=== PATIENT | male | born 1995 | race Caucasian/White ===

== ENCOUNTER 2021-02-11 15:26 | Inpatient (IN) | payer OTHER ==
[2021-02-11 17:42] VITALS: BMI 19.5
[2021-02-11] MEDS ORDERED: MENTHOL/PHENOL 1 EACH UD MM PRN (18:27)
[2021-02-11] MEDS ORDERED: diazePAM 5 MG TABLET PO PRN (18:27)
[2021-02-11] MEDS ORDERED: cloNIDine HCL 0.1 MG TABLET PO PRN (18:27)
[2021-02-11] MEDS ORDERED: MAG HYDROX/AL HYDROX/SIMETH 30 ML UNIT-DOSE CUP PO PRN (18:27)
[2021-02-11] MEDS ORDERED: METHOCARBAMOL 500 MG TABLET PO PRN (18:27)
[2021-02-11] MEDS ORDERED: NICOTINE POLACRILEX 2 MG GUM BUC PRN (18:27)
[2021-02-11] MEDS ORDERED: BISMUTH SUBSALICYLATE 524 MG/30 ML UD PO PRN (18:27)
[2021-02-11] MEDS ORDERED: MAGNESIUM HYDROX 2400MG/30ML ORAL SUSPENSION 30 ML CUP PO PRN (18:27)
[2021-02-11] MEDS ORDERED: MAGNESIUM CITRATE 300 ML BOTTLE PO PRN (18:27)
[2021-02-11] MEDS ORDERED: ONDANSETRON *ODT* 4 MG TABLET SL PRN (18:27)
[2021-02-11] MEDS ORDERED: ACETAMINOPHEN 325 MG TABLET (FP) PO PRN ×2 (18:27)
[2021-02-11] MEDS ORDERED: IBUPROFEN 400 MG TABLET (FP) PO PRN (18:27)
[2021-02-11] MEDS ORDERED: hydrOXYzine PAMOATE 25 MG CAPSULE (FP) PO PRN (18:27)
[2021-02-11] MEDS ORDERED: METHADONE HCL 10 MG TABLET (FOR DETOX USE ONLY) PO ONE (20:30)
[2021-02-11] MEDS ORDERED: MELATONIN 5 MG TABLETS PO SCH (22:00)
[2021-02-11] MEDS: diazePAM 5 MG TABLET PO SCH (22:25)
[2021-02-11] MEDS: THIAMINE HCL 100 MG TABLET (FP) PO SCH (22:26)
[2021-02-12] MEDS: diazePAM 5 MG TABLET PO SCH ×4 (05:56→22:40)
[2021-02-12] MEDS ORDERED: METHADONE HCL 10 MG TABLET (FOR DETOX USE ONLY) ONE (08:55)
[2021-02-12] MEDS ORDERED: METHADONE HCL 5 MG TABLET (FOR DETOX USE ONLY) ONE (08:55)
[2021-02-12] MEDS ORDERED: METHADONE (DETOX) 20 MG, METHADONE (DETOX) 5 MG PO ONE (10:00)
[2021-02-12] MEDS: NICOTINE 14 MG/24 HOURS TOPICAL PATCH TD SCH (10:34)
[2021-02-12] MEDS: PRENATAL VITAMINS W/ FOLIC ACID TABLET (FP) PO SCH (10:34)
[2021-02-12 13:50] LABS: HEMATOCRIT 36.6 % (35.4-49); HEMOGLOBIN 12.4 GM/dL (11.7-16.9); MCH 32.6 pg (25.7-33.7); MCHC 33.8 g/dl (32.0-35.9); MEAN CELL VOLUME 96.4 fl (80-96); MEAN PLT VOLUME 8.8 fl (7.5-11.1); PLATELET COUNT 343 K/MM3 (134-434); RDW 13.8 % (11.9-15.9); WHITE BLOOD COUNT 5.6 K/mm3 (4.0-10.0)
[2021-02-12 13:55] LABS: ALBUMIN 3.6 g/dl (3.4-5.0); BLOOD UREA NITROGEN 22.1 mg/dL (7-18)
[2021-02-12 13:57] LABS: BILIRUBIN,TOTAL 0.2 mg/dL (0.2-1); CALCIUM 9.5 mg/dL (8.5-10.1)
[2021-02-12 13:58] LABS: CREATININE 0.8 mg/dL (0.55-1.3)
[2021-02-12] MEDS: THIAMINE HCL 100 MG TABLET (FP) PO SCH (22:39)
[2021-02-12] MEDS: MELATONIN 5 MG TABLETS PO PRN (22:42)
[2021-02-13] MEDS: diazePAM 5 MG TABLET PO SCH ×3 (05:25→22:00)
[2021-02-13] MEDS ORDERED: METHADONE HCL 10 MG TABLET (FOR DETOX USE ONLY) PO ONE (10:00)
[2021-02-13] MEDS: NICOTINE 14 MG/24 HOURS TOPICAL PATCH TD SCH (10:35)
[2021-02-13] MEDS: PRENATAL VITAMINS W/ FOLIC ACID TABLET (FP) PO SCH (10:35)
[2021-02-13] MEDS ORDERED: FLU VACCINE (FLULAVAL) PF 60 MCG/0.5 ML SYRINGE 2020-2021 IM ONE (12:00)
[2021-02-13] MEDS ORDERED: PNEUMOC 13-VAL CONJ-DIP CRM/PF 0.5 ML DISP.SYRIN IM ONE (12:00)
[2021-02-13] MEDS ORDERED: PNEUMOCOCCAL 23 VACCINE 0.5 ML VIAL IM ONE (12:00)
[2021-02-13] MEDS: THIAMINE HCL 100 MG TABLET (FP) PO SCH (22:00)
[2021-02-13] MEDS: MELATONIN 5 MG TABLETS PO PRN (22:01)
[2021-02-14] MEDS: diazePAM 5 MG TABLET PO SCH ×2 (05:40→18:40)
[2021-02-14] MEDS ORDERED: METHADONE HCL 5 MG TABLET (FOR DETOX USE ONLY) ONE (09:15)
[2021-02-14] MEDS ORDERED: METHADONE HCL 10 MG TABLET (FOR DETOX USE ONLY) ONE (09:15)
[2021-02-14] MEDS ORDERED: METHADONE (DETOX) 10 MG, METHADONE (DETOX) 5 MG PO ONE (10:00)
[2021-02-14 10:06] LABS: SARS-CoV-2 NAA Not Detected (Not Detected)
[2021-02-14] MEDS: PRENATAL VITAMINS W/ FOLIC ACID TABLET (FP) PO SCH (10:08)
[2021-02-14] MEDS: NICOTINE 14 MG/24 HOURS TOPICAL PATCH TD SCH (10:10)
[2021-02-14 16:52] VITALS: BP 128/66; PULSE 82; TEMP 97.8
[2021-02-15] MEDS ORDERED: diazePAM 5 MG TABLET PO ONE (06:00)
[2021-02-15] MEDS ORDERED: METHADONE HCL 10 MG TABLET (FOR DETOX USE ONLY) PO ONE (10:00)
[2021-02-16] MEDS ORDERED: METHADONE HCL 5 MG TABLET (FOR DETOX USE ONLY) PO ONE (06:00)
== END 2021-02-14 18:38 | disposition left against medical advice (07) | DRG 894 ==
LOC: YASAS 15:26 → Y6N 20:06
PROVIDERS: ADMIT Allergy & Immunology; ATTEND Allergy & Immunology
PROC: HZ2ZZZZ Detoxification Services for Substance Abuse Treatment (ICD-10-PCS; principal; 2021-02-11)
DX: F11.23 Opioid dependence with withdrawal (principal); Z68.1 Body mass index [BMI] 19.9 or less, adult; F13.230 Sedative, hypnotic or anxiolytic dependence with withdrawal, uncomplicated; F17.210 Nicotine dependence, cigarettes, uncomplicated; F19.24 Other psychoactive substance dependence with psychoactive substance-induced mood disorder; F25.9 Schizoaffective disorder, unspecified; F31.9 Bipolar disorder, unspecified; R45.89 Other symptoms and signs involving emotional state; R63.4 Abnormal weight loss; Z62.810 Personal history of physical and sexual abuse in childhood; Z91.013 Allergy to seafood; Z56.0 Unemployment, unspecified; Z59.0 Homelessness
CPT/HCPCS: 36415; 80053; 85027; 86780; 93005; 93010; C9803; U0003; U0005